=== PATIENT | female | born 1960 | race African-American/Black ===

== ENCOUNTER 2016-10-03 22:17 | Emergency (ER) | payer OTHER ==
--- NOTE | ~2016-10-03 | CR72 ---
[facility] of [facility] RADIOLOGY TEXT RESULTS PATIENT: ALEXIS GASCA LOCATION: [facility] : 58 UNIT #: [id number] AGE: [address]: Mikaela Guzman MD SEX: F ORDER DR: [id number] [facility] [address] [place], [place] [address] [id number] MR#: [id number] Acc #: [id number] NAME: ALEXIS GASCA : 1960 SEX: F STUDY DATE/TIME: 10/03/2016 23:54 UNIT: [facility] ROOM: STUDY DESCRIPTION: CR Chest Single View Portable Attending Physician: Mikaela Guzman M.D. Ordering Physician: Mikaela Guzman M.D. Primary Care Physician: Guy Cervantes M.D. MEDICAL IMAGING REPORT This report is preliminary unless electronic signature is present EXAM Portable chest INDICATIONS Cough for the past 2 days. PROCEDURE Frontal view chest. COMPARISON STUDIES 01/16/2016 FINDINGS Stable cardiomegaly. There is new rounded right perihilar opacity. Otherwise lungs are clear. No pneumothorax. IMPRESSION New rounded opacity in the right perihilar region could represent adenopathy, mass or infiltrate. Correlate with risk factors. This could be evaluated with chest CT if desired clinically. Otherwise suggest attention on a short-interval followup to document improvement. Dictated by... Jaiden Bradshaw M.D. THIS IS AN ELECTRONICALLY VERIFIED REPORT Jaiden Bradshaw M.D. at 10/05/2016 9:54 PM EED/celi TD: 10/04/2016 10:06 JOB #: [id number] [facility] RADIOLOGY TEXT RESULTS PATIENT: ALEXIS GASCA LOCATION: [facility] : 58 UNIT #: [id number] AGE: [address]: Mikaela Guzman MD SEX: F ORDER DR: MEDICAL IMAGING REPORT Page 1 of 1 COPY
[~2016-10-03 22:17] MED LIST: ACETAMINOPHEN PO; AUGMENTIN PO; AVANDIA PO; CARVEDILOL25 MG PO; COMBIVENT INH14.7 GM INH; COMBIVENT MININEB INH; CYMBALTA PO; HUMALOG MIX 50/53 M1; HUMALOG MIX 75/10 ML SUBQ; JANUMET 50-1,1 UDTAB PO; JANUVIA PO; KEFLEX PO; LANTUS100 U/ML SQ; LIPITOR PO; LIPITOR80 MG PO; LISINOPRIL-HCTZ1 T16 PO; LOPID600 MG PO; METFORMIN PO; NEURONTIN600 MG PO; NIASPAN PO; Q-PAP325 MG PO; VICODIN 5/500 T1 TAB PO; VITAMIN D50000 UNIT PO; ZESTORETIC 20/21 TAB PO; ZYRTEC10 M2 PO
[2016-10-03 23:35] LABS: URINE SOURCE CLEAN CATCH
[2016-10-03 23:41] LABS: URINE APPEARANCE CLOUDY; URINE BLOOD NEG (NEG); URINE COLOR DK YELLOW; URINE GLUCOSE >1000 MG/DL (NEG); URINE KETONE TRACE (NEG); URINE LEUKOCYTE ESTERASE 1+ (NEG); URINE NITRATE NEG (NEG); URINE PH 5.5 (5-8); URINE PROTEIN 1+ (NEG); URINE SPECIFIC GRAVITY 1.025 (1.003-1.035)
[2016-10-03 23:44] LABS: CULTURE INDICATED? YES; URINE BACTERIA AUWI 1+ (NEGATIVE); URINE SQUAMOUS EPITHELIAL CELL MOD /[HPF]
[2016-10-03 23:54] LABS: URINE BILIRUBIN NEG (NEG)
[2016-10-04 01:07] LABS: BASOPHIL# 0.1 X10e3 (0-0.3); BASOPHIL% 0.6 % (0-2.5); DIFF IND NO; EOSINOPHIL# 0.2 X10e3 (0-0.7); EOSINOPHIL% 1.3 % (0.0-7.0); HEMATOCRIT 38.8 % (35.0-45.0); HEMOGLOBIN 12.7 gm/dL (12.0-16.0); LYMPHOCYTE# 1.5 X10e3 (1.0-3.5); MEAN CELL VOLUME 92.4 FL (83-96); MEAN CORPUSCULAR HEMOGLOBIN 30.2 PG (28-34); MEAN CORPUSCULAR HGB CONC 32.6 g/dL (30-36); MEAN PLATELET VOLUME 10.5 FL (6.5-11.5); MONOCYTE# 1.4 X10e3 (0-1.0); MONOCYTE% 9.6 % (3.0-12.0); NEUTROPHIL# 11.6 X10e3 (1.5-7.1); NEUTROPHIL% 78.5 % (40-75); PLATELET COUNT 190 X10e3 (140-420); WHITE BLOOD COUNT 14.8 X10e3 (4.0-10.5)
[2016-10-04 01:25] LABS: ALBUMIN SERUM 3.6 g/dL (3.5-5.0); BILIRUBIN, DIRECT 0.1 mg/dL (0.0-0.2); BILIRUBIN,INDIRECT 0.7 mg/dL (0.0-0.9); BILIRUBIN,TOTAL 0.8 mg/dL (0.2-2.0); BUN/CREATININE RATIO 23.33; CALCIUM SERUM 8.7 mg/dL (8.4-10.2); CREATININE SERUM 0.6 mg/dL (0.6-1.4); GLOM FILT RATE Estimated 117.3 mL/min (>60); POTASSIUM 3.9 mmol/L (3.5-5.1); PROTEIN TOTAL SERUM 7.6 g/dL (6.0-8.3)
[2016-10-04 02:01] LABS: INFLUENZA A NEG (NEG); INFLUENZA B NEG (NEG)
== END 2016-10-04 02:10 | disposition home or self-care (01) ==
LOC: CED 22:17
PROVIDERS: Emergency Medicine
DX: J18.9 Pneumonia, unspecified organism (principal); J02.9 Acute pharyngitis, unspecified; E11.9 Type 2 diabetes mellitus without complications; I11.9 Hypertensive heart disease without heart failure; I51.9 Heart disease, unspecified; E78.5 Hyperlipidemia, unspecified
CPT/HCPCS: 71010; 80048; 80076; 81003; 85025; 87086; 87651; 87804; 99283